=== PATIENT | female | born 1940 | race Caucasian/White ===

== ENCOUNTER 2016-12-03 10:22 | Emergency (ER) | payer MEDICARE ==
[2016-12-03] MEDS ORDERED: Aspirin Low Dose CHEW TAB* 81 MG PO ONE (10:35)
[2016-12-03 11:06] LABS: Hematocrit 41 % (35-47); Hemoglobin 13.7 g/dl (12.0-16.0); Mean Corpuscular HGB Conc 34 g/dl (31-36); Mean Corpuscular Hemoglobin 33 pg (27-31); Mean Corpuscular Volume 98 fL (80-97); Mean Platelet Volume 9 um3 (7.4-10.4); Red Blood Count 4.13 10^6/ul (4.0-5.4); Red Cell Distribution Width 13 % (10.5-15); White Blood Count 12.4 10^3/ul (3.5-10.8)
--- NOTE | 2016-12-03 11:16 | RAD ---
Indication: Midsternal chest pain. Comparison: No relevant prior exams available on the [facility] for comparison. Technique: Upright AP 1052 hours Report: Severe cardiomegaly. Pericardial effusion not excluded. Negative for prominence of the central pulmonary vasculature. Mild subsegmental atelectasis at the LEFT lung base with cardiomegaly accounting for volume loss. Trace LEFT pleural effusion not excluded. Negative for pneumothorax. IMPRESSION: Severe cardiomegaly with pericardial effusion not excluded. Mild LEFT basilar subsegmental atelectasis and potential trace LEFT pleural effusion.
[2016-12-03 11:22] LABS: Albumin 3.8 g/dL (3.2-5.2); BUN/Creatinine Ratio 16.2 (8-20); Calcium 8.9 mg/dL (8.6-10.3); EGFR African American 98.1 (>60); EGFR Non-African American 76.3 (>60); Globulin 3.1 g/dL (2-4); Magnesium 1.7 mg/dL (1.9-2.7); Potassium 3.9 mmol/L (3.5-5.0); Total Bilirubin 1.7 mg/dL (0.2-1.0); Total Protein 6.9 g/dL (6.4-8.9); Troponin I 0.01 ng/mL (<0.04)
[2016-12-03] MEDS ORDERED: HYDROcodone/ACETAMIN 5-325 MG* 1 TAB PO ONE (11:53)
[2016-12-03 11:57] LABS: TSH (Thyroid Stimulating Horm) 0.87 mcIU/mL (0.34-5.60)
[2016-12-03] MEDS ORDERED: Diltiazem IV* 5 MG/ML 5 ML VIAL (for loading dose/IV Push) (25 MG) IV SLOW PU ONE (12:04)
[2016-12-03] MEDS ORDERED: NS 0.9% 1000 ML* 1,000 ML IV ONE (12:04)
[2016-12-03 15:30] VITALS: BP 114/72
--- NOTE | 2016-12-03 18:40 | ED ---
Carmella Barth Alfonso, scribed for Joel Wiseman MD on 12/03/16 at 1056 . HPI Chest Pain - HPI Summary HPI Summary: This patient is a 76 year old F presenting to [facility] accompanied by with a chief complaint of mid sternal chest pain since last night. The CC is described as constant and sharp. She denies any pain radiation. The patient rates the pain 6/10 in severity. Symptoms aggravated by exertion and deep breathing, and alleviated by sitting up. The patient reports SOB, and diarrhea. The patient denies N/V, diaphoresis, near syncope, and abdominal pain. She has been taking Coumadin for over a decade. PMHx of A-Fib. - History of Current Complaint Chief Complaint: EDChestPainROMI Time Seen by Provider: 12/03/16 10:35 Hx Obtained From: Patient Onset/Duration: Started Hours Ago - Last night, Still Present Timing: Constant Initial Severity: Moderate Current Severity: Moderate Pain Intensity: 6 Pain Scale Used: 0-10 Numeric Chest Pain Location: Mid Sternal Chest Pain Radiates: No Character: Sharp/Stabbing Aggravating Factor(s): Exertion, Deep Breaths Alleviating Factor(s): Position - Sitting up Associated Signs and Symptoms: Positive: Other: - The patient reports SOB, and diarrhea. The patient denies N/V, diaphoresis, near syncope, and abdominal pain. - Allergy/Home Medications Allergies/Adverse Reactions: Allergies Allergy/AdvReac Type Severity Reaction Status Date / Time No Known Allergies Allergy Verified 12/03/16 11:01 PMH/Surg Hx/FS Hx/Imm Hx Cardiovascular History: Reports: Hx Atrial Fibrillation Sensory History: Denies: Hx Deafness Opthamlomology History: Denies: Hx Legally Blind Infectious Disease History: Denies: Traveled Outside the [place] in Last 30 Days - Family History Known Family History: Positive: Other - A-Fib in mother - Social History Alcohol Use: Occasionally Alcohol Amount: GLASS OF WINE Hx Substance Use: No Substance Use Type: Reports: None Hx Tobacco Use: No Review of Systems Negative: Skin Diaphoresis Positive: Chest Pain - Sharp and constant at mid sternal Positive: Shortness Of Breath Positive: Diarrhea. Negative: Abdominal Pain, Vomiting, Nausea Negative: Syncope All Other Systems Reviewed And Are Negative: Yes Physical Exam - Summary Physical Exam Summary: VITAL SIGNS: Reviewed. GENERAL: Patient is a well-developed and nourished female who is lying comfortable in the stretcher. Patient is not in any acute respiratory distress. HEAD AND FACE: No signs of trauma. No ecchymosis, hematomas or skull depressions. No sinus tenderness. EYES: PERRLA, EOMI x 2, No injected conjunctiva, no nystagmus. EARS: Hearing grossly intact. Ear canals and tympanic membranes are within normal limits. MOUTH: Oropharynx within normal limits. NECK: Supple, trachea is midline, no adenopathy, no JVD, no carotid bruit, no c- spine tenderness, neck with full ROM. CHEST: Symmetric, no tenderness at palpation LUNGS: Clear to auscultation bilaterally. No wheezing or crackles. CVS: Irregular rate and rhythm, S1 and S2 present, no murmurs or gallops appreciated. ABDOMEN: Soft, non-tender. No signs of distention. No rebound no guarding, and no masses palpated. Bowel sounds are normal. EXTREMITIES: FROM in all major joints, no edema, no cyanosis or clubbing. NEURO: Alert and oriented x 3. No acute neurological deficits. Speech is normal and follows commands. SKIN: Dry and warm Triage Information Reviewed: Yes Vital Signs On Initial Exam: Initial Vitals Temp Pulse Resp BP Pulse Ox 98.1 F 106 20 115/75 97 12/03/16 10:27 12/03/16 10:27 12/03/16 10:27 12/03/16 10:27 12/03/16 10:27 Vital Signs Reviewed: Yes Diagnostics - Vital Signs Vital Signs Temp Pulse Resp BP Pulse Ox 12/03/16 10:49 100.0 F 57 16 116/78 96 12/03/16 10:27 98.1 F 106 20 115/75 97 - Laboratory Lab Results: Lab Results 12/03/16 12/03/16 12/03/16 Range/Units 10:54 10:54 10:54 WBC 12.4 H (3.5-10.8) 10^3/ul RBC 4.13 (4.0-5.4) 10^6/ul Hgb 13.7 (12.0-16.0) g/dl Hct 41 (35-47) % MCV 98 H (80-97) fL MCH 33 H (27-31) pg MCHC 34 (31-36) g/dl RDW 13 (10.5-15) % Plt Count 179 (150-450) 10^3/ul MPV 9 (7.4-10.4) um3 Neut % (Auto) 78.3 (38-83) % Lymph % (Auto) 11.2 L (25-47) % Perry % (Auto) 10.1 H (1-9) % Eos % (Auto) 0.1 (0-6) % Baso % (Auto) 0.3 (0-2) % Absolute Neuts (auto) 9.7 H (1.5-7.7) 10^3/ul Absolute Lymphs (auto) 1.4 (1.0-4.8) 10^3/ul Absolute Monos (auto) 1.3 H (0-0.8) 10^3/ul Absolute Eos (auto) 0 (0-0.6) 10^3/ul Absolute Basos (auto) 0 (0-0.2) 10^3/ul Absolute Nucleated RBC 0 10^3/ul Nucleated RBC % 0 INR (Anticoag Therapy) 2.99 H (0.89-1.11) APTT 41.7 H (26.0-36.3) seconds Sodium 135 (133-145) mmol/L Potassium 3.9 (3.5-5.0) mmol/L Chloride 102 (101-111) mmol/L Carbon Dioxide 25 (22-32) mmol/L Anion Gap 8 (2-11) mmol/L BUN 12 (6-24) mg/dL Creatinine 0.74 (0.51-0.95) mg/dL Est GFR ( Amer) 98.1 (>60) Est GFR (Non-Af Amer) 76.3 (>60) BUN/Creatinine Ratio 16.2 (8-20) Glucose 132 H (70-100) mg/dL Lactic Acid (0.5-2.0) mmol/L Calcium 8.9 (8.6-10.3) mg/dL Magnesium 1.7 L (1.9-2.7) mg/dL Total Bilirubin 1.70 H (0.2-1.0) mg/dL AST 15 (13-39) U/L ALT 14 (7-52) U/L Alkaline Phosphatase 68 (34-104) U/L Total Creatine Kinase 38 (10-223) U/L CK-MB (CK-2) 1.6 (0.6-6.3) ng/mL Troponin I 0.01 (<0.04) ng/mL B-Natriuretic Peptide ( - 100) pg/mL Total Protein 6.9 (6.4-8.9) g/dL Albumin 3.8 (3.2-5.2) g/dL Globulin 3.1 (2-4) g/dL Albumin/Globulin Ratio 1.2 (1-3) TSH 0.87 (0.34-5.60) mcIU/mL 12/03/16 12/03/16 12/03/16 Range/Units 10:54 10:54 13:35 WBC (3.5-10.8) 10^3/ul RBC (4.0-5.4) 10^6/ul Hgb (12.0-16.0) g/dl Hct (35-47) % MCV (80-97) fL MCH (27-31) pg MCHC (31-36) g/dl RDW (10.5-15) % Plt Count (150-450) 10^3/ul MPV (7.4-10.4) um3 Neut % (Auto) (38-83) % Lymph % (Auto) (25-47) % Perry % (Auto) (1-9) % Eos % (Auto) (0-6) % Baso % (Auto) (0-2) % Absolute Neuts (auto) (1.5-7.7) 10^3/ul Absolute Lymphs (auto) (1.0-4.8) 10^3/ul Absolute Monos (auto) (0-0.8) 10^3/ul Absolute Eos (auto) (0-0.6) 10^3/ul Absolute Basos (auto) (0-0.2) 10^3/ul Absolute Nucleated RBC 10^3/ul Nucleated RBC % INR (Anticoag Therapy) (0.89-1.11) APTT (26.0-36.3) seconds Sodium (133-145) mmol/L Potassium (3.5-5.0) mmol/L Chloride (101-111) mmol/L Carbon Dioxide (22-32) mmol/L Anion Gap (2-11) mmol/L BUN (6-24) mg/dL Creatinine (0.51-0.95) mg/dL Est GFR ( Amer) (>60) Est GFR (Non-Af Amer) (>60) BUN/Creatinine Ratio (8-20) Glucose (70-100) mg/dL Lactic Acid 0.8 (0.5-2.0) mmol/L Calcium (8.6-10.3) mg/dL Magnesium (1.9-2.7) mg/dL Total Bilirubin (0.2-1.0) mg/dL AST (13-39) U/L ALT (7-52) U/L Alkaline Phosphatase (34-104) U/L Total Creatine Kinase (10-223) U/L CK-MB (CK-2) (0.6-6.3) ng/mL Troponin I 0.01 (<0.04) ng/mL B-Natriuretic Peptide 516 H ( - 100) pg/mL Total Protein (6.4-8.9) g/dL Albumin (3.2-5.2) g/dL Globulin (2-4) g/dL Albumin/Globulin Ratio (1-3) TSH (0.34-5.60) mcIU/mL Result Diagrams: 12/03/16 10:54 12/03/16 10:54 Lab Statement: Any lab studies that have been ordered have been reviewed, and results considered in the medical decision making process. - Radiology CXR Radiology Interpretation Completed By: Radiologist - Severe cardiomegaly with pericardial effusion not excluded. Mild LEFT basilar subsegmental atelectasis and potential trace LEFT pleural effusion. - EKG 1038 Cardiac Rate: Tachycardia - BPM 113 EKG Rhythm: Atrial Fibrillation - With RVR Re-Evaluation - Re-Evaluation First Eval Re-Evaluation Time: 15:30 Comment: Pt reports she is feeling better. Admission was offered due to heart rate of 90 to 110 but she declined because she agrees to correct this with medication. Plan for discharge was throughly discussed. She understands and agrees. Chest Pain Course/Dx - Course Course Of Treatment: This patient is a 76 year old F presenting to [facility] accompanied by with a chief complaint of mid sternal chest pain since last night. The CC is described as constant and sharp. She denies any pain radiation. The patient rates the pain 6/10 in severity. Symptoms aggravated by exertion and deep breathing, and alleviated by sitting up. The patient reports SOB, and diarrhea. The patient denies N/V, diaphoresis, near syncope, and abdominal pain. She has been taking Coumadin for over a decade. PMHx of A-Fib. Assessment/Plan: Test results show WBC of 12.4, INR of 2.9, glucose of 132, and BNP of 516. EKG reveals A-Fib with RVR. CXR reveals Severe cardiomegaly with pericardial effusion not excluded. Mild LEFT basilar subsegmental atelectasis and potential trace LEFT pleural effusion. In the ED course, the patient was given IV fluids, Diltazem, Aspirin, and [place]. The heart race decreased ranging between 90 and 110 BPM. Troponin #1 is 0.01. Four hours later the Troponin #2 is 0.01. The patient symptoms have resolved. At this point, I offered the patient admission since the heart rate is not complete controlled, however, the patient declines. At the time of discharge, the patients heart rate is 98 BPM. She was instructed to return to the ED is symptoms return. Patient is hemodynamically stable and alert and oriented to person, place, and time. - Chest Pain Differential Diagnosis/HQI/PQRI: ACS, Angina, CHF, Chest Wall, GI Disease, Lower Respiratory Infection - Diagnoses Provider Diagnoses: Chest pain, Atrial fibrillation Discharge - Discharge Plan Condition: Stable Disposition: HOME Patient Education Materials: Chest Pain (ED) Referrals: [facility] [place] [facility] [Outside] - 3 Days The documentation as recorded by the Carmella coello Alfonso accurately reflects the service I personally performed and the decisions made by Bowen graham Walter, MD.
== END 2016-12-03 15:44 | disposition home or self-care (01) ==
LOC: ED 10:22
DX: R07.89 Other chest pain (principal); I48.91 Unspecified atrial fibrillation; Z79.01 Long term (current) use of anticoagulants; R06.02 Shortness of breath; R19.7 Diarrhea, unspecified
CPT/HCPCS: 36415; 71010; 80053; 82550; 82553; 83605; 83735; 83880; 84443; 84484; 85025; 85610; 85730; 93005; 96374; 99283; A9270-GY